=== PATIENT | female | born 1940 | race Caucasian/White ===

== ENCOUNTER 2016-09-30 14:34 | Observation (INO) | payer MEDICARE, OTHER ==
[2016-09-30] MEDS ORDERED: KETOROLAC TROMETHAMINE 60 MG/2 ML VIAL IM ONE (14:44)
[2016-09-30 15:11] LABS: APPEARANCE,URINE Clear (CLEAR); COLOR,URINE Yellow (YELLOW); OCCULT BLOOD,URINE Negative (NEGATIVE); PH URINE 5.5 (5.0 - 8.0); UROBILINOGEN URINE 0.2 Eu (0.2-1.0)
[2016-09-30] MEDS ORDERED: ONDANSETRON HCL/PF 4 MG/ 2ML VIAL IVP ONE (15:56)
[2016-09-30 16:04] LABS: BASOPHILS % 0.2 (0.0-1.5); EOSINOPHILS % 2.2 % (0.0-6.8); MEAN CORPUSCULAR HEMOGLOBIN 32.9 pg (28.0-34.0); MEAN CORPUSCULAR VOLUME 89.4 fl (80.0-100.0); MONOCYTES % 5.7 % (0.0-11.0); NEUTROPHILS # 6.8 # k/uL (1.4-7.7)
[2016-09-30 16:18] LABS: eGFR (African) > 60; eGFR (Non-African) > 60
[2016-09-30 18:43] VITALS: BMI 32.4
[2016-09-30] MEDS ORDERED: ENOXAPARIN SODIUM 30 MG/0.3 ML DISP.SYRIN SQ SCH (19:28)
[2016-09-30] MEDS ORDERED: KETOROLAC TROMETHAMINE 30 MG/1ML VIAL IVP SCH (19:28)
--- NOTE | 2016-09-30 19:28 | History and Physical Report ---
History of Present Illnes - History of Present Illness Reason for Visit: Weakness History of Present Illness: Patient tells me she presented to ER because today her R anterior thigh started hurting. Has a H/o B THR. The leg has felt very weak today and unable to bear weight. In the ER, CT of Lspine and pelvis were negative for fractures. Sodium and potassium found to be low. Patient had recently been started on HCTZ 25 mg daily for HTN. - Past Medical History Cardiac: HTN, Hyperlipidemia. denies: AFIB, CAD, CHF Gastrointestinal: GERD, Other (esophageal stricture) Heme/Onc: Other (Factor V Leiden deficency) Musculoskeletal: Other (hip pain chronic) - Past Surgical History Past Surgical History: Cataract Removal, Hysterectomy (total), Total Hip Replacement (bilateral), Other (esophageal dilitation) - Past Family History Father Family History: CAD, DM, (70s) Mother Family History: DM, (82yo) Sister 1 Family History: DM, Other (alzeheimers) - Past Social History Smoke: No Alcohol: None Drugs: None Lives: Alone Domestic Violence: Negative - Health Maintenance Health Maintenance: Influenza Vaccine, Pneumococcal Vaccine. denies: Tetanus, Mammogram, Colonoscopy, DEXA Pneumonia Vaccine: Yes Resuscitation Status: Resusciation Status Resuscitation Status Full Code Review of Systems - Review of Systems Constitutional: Weakness. negative: Fever Eyes: negative: pain ENT: negative: Ear Pain Respiratory: negative: Cough, Shortness of Breath Cardiovascular: negative: Chest Pain Gastrointestinal: negative: Nausea, Vomiting, Abdominal Pain, Diarrhea, Constipation Genitourinary: Frequency. negative: Dysuria Musculoskeletal: Leg Pain Skin: negative: Rash Neurological: Weakness - Medications/Allergies Allergies/Adverse Reactions: Allergies Allergy/AdvReac Type Severity Reaction Status Date / Time erythromycin base Allergy Unknown unknown Verified 09/30/16 14:49 [From E-Mycin] Penicillins Allergy Unknown unknown Verified 09/30/16 14:49 Sulfa (Sulfonamide Allergy Unknown unknown Verified 09/30/16 14:49 Antibiotics) Exam - Exam Vital Signs: Vital Signs (72 hours) 09/30/16 18:24 Temperature 97.8 F Pulse Rate [ 72 Pulse ox] Respiratory 20 Rate Blood Pressure 154/73 [Left Arm] O2 Sat by Pulse 96 Oximetry General: Alert, Oriented to Person, Oriented to Place, Oriented to Time, Cooperative, Obese HEENT: Atraumatic, PERRLA, EOMI, Nose Mucous membr. moist/M[place]o Neck: Normal Range of Motion Lungs: Clear to auscultation, Normal air movement, Speaks full Sentences Cardiovascular: Regular rate Abdomen: Normal bowel sounds, Soft, No tenderness Integumentary: Normal Extremities: No edema, Other (Tender R anterior thigh. NO posterior pain or swelling.) Neurological: Generalized Weakness Psych/Mental Status: Mental status NL, Mood NL, Appropriate Affect, Intact Judgment Assessment/Plan - Assessment/Plan (1) Hypokalemia Status: Acute Current Visit: Yes Plan: Will replace orally. Suspect due to HCTZ. Will stop. (2) Leg pain, anterior Status: Acute Current Visit: Yes Plan: Suspect OA. Treat with ibuprofen first then tramadol if no help. (3) Hypertension Status: Acute Current Visit: No Qualifiers: Hypertension type: unspecified secondary hypertension Qualified Code(s): I15.9 - Secondary hypertension, unspecified Plan: Stop HCTZ. Watch. (4) Weakness Status: Acute Current Visit: No (5) Hyponatremia Status: Acute Current Visit: Yes Plan: Suspect due to HCTZ. Will stop. Run IVF of NS. VTE Assessment - RISK FACTOR SCORE VTE RISK FACTOR SCORES: AGE OVER 60 YEARS, ANTICIPATED BED CONFINEMENT OR IMMOBILIZATION > 24 HOURS - RISK VTE MODERATE RISK: SCORE OF 2 (RISK PROXIMAL DVT 2-4%) PROPHYAXIS NEEDED
[2016-09-30] MEDS ORDERED: IBUPROFEN 400 MG TABLET PO PRN (19:43)
[2016-09-30] MEDS ORDERED: traMADol HCL 50 MG TABLET PO PRN (19:43)
[2016-09-30] MEDS ORDERED: 0.9 % SODIUM CHLORIDE 1,000 ML IV ONE (19:45)
[2016-09-30] MEDS ORDERED: LEVOFLOXACIN 500MG/D5W 100ML 100 ML IV ONE (19:45)
[2016-09-30] MEDS: LEVOFLOXACIN 500MG/D5W 100ML 500 MG in PREMIX BAG 1 BAG IV SCH (19:51)
[2016-09-30] MEDS: 0.9 % SODIUM CHLORIDE 1,000 ML IV SCH (19:51)
[2016-09-30] MEDS ORDERED: ENOXAPARIN SODIUM 30 MG/0.3 ML DISP.SYRIN SQ ONE (19:56)
--- NOTE | 2016-09-30 19:58 | ED Physician Documentation ---
Abdominal Pain - HISTORIAN Historian: patient - HPI Stated Complaint: back pain Chief Complaint: Abdominal Pain Additonal Information: inguinal and low back pain Onset: hours (5) Duration: constant Timing: still present Context: other (doing housework). denies: out of country travel, bad food, recent trauma Severity: moderate Quality: burning Front/Back of Body, Lg (Color): 1 - pain 2 - pain Associated Symptoms: other (ack pain) Exacerbated by: other (moving) Relieved by: nothing - ROS CONST: no problems GI/: none CVS/RESP: none EYES/ENT: none MS/SKIN/LYMPH: none NEURO/PSYCH: none - SOCIAL HX Smoking History: non-smoker Alcohol Use: none Drug Use: none - FAMILY HX Family History: no significant history - PAST HX Past History: none Ischemic Bowel Risk Factors: none Other History: none Surgeries/Procedures: none Immunizations: referred to PCP Home Medications: Ambulatory Orders Medication Instructions Recorded Aspirin [Thuy] 81 mg PO DAILY 10/13/15 Ibuprofen [Advil] 400 mg PO DIRECTED PRN 10/13/15 Allergies/Adverse Reactions: Allergies Allergy/AdvReac Type Severity Reaction Status Date / Time erythromycin base Allergy Unknown unknown Verified 09/30/16 14:49 [From E-Mycin] Penicillins Allergy Unknown unknown Verified 09/30/16 14:49 Sulfa (Sulfonamide Allergy Unknown unknown Verified 09/30/16 14:49 Antibiotics) - VITAL SIGNS Vital Signs: Vital Signs Temp Pulse Resp BP Pulse Ox 97.8 F 72 20 154/73 96 09/30/16 18:24 09/30/16 18:24 09/30/16 18:24 09/30/16 18:24 09/30/16 18:24 - REVIEWED ASSESSMENTS Nursing Assessment Reviewed: Yes Vitals Reviewed: Yes Progress - Results/Orders Results/Orders: cbc, cmp, ua, ct l-spine, hip/pelvis x-rays ordered - Progress Progress: pt. stable entire time in er, given 30 mg toradol iv with improvement Critical Care Note - Critical Care Note Total Time (mins): 0 ED Results Lab/Radiology - Lab Results Lab Results: Lab Results 09/30/16 09/30/16 09/30/16 15:55 15:55 15:55 WBC RBC Hgb Hct MCV MCH MCHC RDW Plt Count Neut % (Auto) Lymph % (Auto) [place] % (Auto) Eos % (Auto) Baso % (Auto) Neut # Lymph # [place] # Eos # Baso # Reactive Lymphs % Reactive Lymphs # PT 9.9 Seconds Seconds (9.7-11.5) INR 0.9 (0.9-1.1) APTT 24.8 Seconds Seconds (24.5-32.8) Sodium 128 mmol/L L mmol/L (136-145) Potassium 3.0 mmol/L L mmol/L (3.5-5.0) Chloride 80 mmol/L L mmol/L (98-110) Carbon Dioxide 34 mmol/L H mmol/L (20-32) BUN 15 mg/dL mg/dL (10-26) Creatinine 0.6 mg/dL mg/dL (0.4-1.5) Estimated Creat Clear 132 Est GFR ( Amer) > 60 (60 - ) Est GFR (Non-Af Amer) > 60 (60 - ) Glucose 157 mg/dL H mg/dL (70-99) Calcium 10.3 mg/dL mg/dL (8.5-10.5) Total Bilirubin 1.5 mg/dL H mg/dL (0.2-1.2) AST 30 U/L U/L (0-41) ALT 29 U/L U/L (0-45) Alkaline Phosphatase 61 U/L U/L (46-116) Troponin I < 0.03 ng/mL L ng/mL (0.03-0.06) Total Protein 7.1 g/dL g/dL (6.0-8.5) Albumin 4.6 g/dL g/dL (3.0-5.5) Urine Color Urine Appearance Urine pH Ur Specific [place] Urine Protein Urine Ketones Urine Occult Blood Urine Nitrite Urine Bilirubin Urine Urobilinogen Ur Leukocyte Esterase Urine RBC Urine WBC Urine WBC Clumps Ur Squamous Epith Cells Urine Bacteria Urine Glucose 09/30/16 09/30/16 15:55 15:05 WBC 9.60 K/ul K/ul (4.00-12.00) RBC 4.03 M/ul M/ul (3.90-5.20) Hgb 13.3 g/dL g/dL (12.0-16.0) Hct 36.0 % % (34.5-46.5) MCV 89.4 fl fl (80.0-100.0) MCH 32.9 pg pg (28.0-34.0) MCHC 36.8 g/dL H g/dL (30.0-36.0) RDW 12.8 % % (11.3-14.3) Plt Count 184 K/mm3 K/mm3 (130-400) Neut % (Auto) 71.4 % % (39.0-79.0) Lymph % (Auto) 19.3 % % (16.0-50.0) [place] % (Auto) 5.7 % % (0.0-11.0) Eos % (Auto) 2.2 % % (0.0-6.8) Baso % (Auto) 0.2 (0.0-1.5) Neut # 6.8 # k/uL # k/uL (1.4-7.7) Lymph # 1.8 # k/uL # k/uL (0.6-4.0) [place] # 0.6 # k/uL # k/uL (0.0-0.9) Eos # 0.2 # k/uL # k/uL (0.0-0.6) Baso # 0.0 # k/uL # k/uL (0.0-0.5) Reactive Lymphs % 1.2 % % (0.0-5.0) Reactive Lymphs # 0.1 # k/uL # k/uL (0.0-0.8) PT INR APTT Sodium Potassium Chloride Carbon Dioxide BUN Creatinine Estimated Creat Clear Est GFR ( Amer) Est GFR (Non-Af Amer) Glucose Calcium Total Bilirubin AST ALT Alkaline Phosphatase Troponin I Total Protein Albumin Urine Color Yellow (YELLOW) Urine Appearance Clear (CLEAR) Urine pH 5.5 (5.0 - 8.0) Ur Specific [place] 1.020 (1.010-1.030) Urine Protein Negative mg/dL mg/dL (NEGATIVE) Urine Ketones Negative mg/dL mg/dL (NEGATIVE) Urine Occult Blood Negative (NEGATIVE) Urine Nitrite Positive (NEGATIVE) Urine Bilirubin Negative (NEGATIVE) Urine Urobilinogen 0.2 Eu Eu (0.2-1.0) Ur Leukocyte Esterase Negative (NEGATIVE) Urine RBC 0-2 (0-2 HPF) Urine WBC 5-10 H (0-5 HPF) Urine WBC Clumps Present H (NEGATIVE) Ur Squamous Epith Cells Few (NEG-FEW) Urine Bacteria Moderate H (NEGATIVE) Urine Glucose Negative mg/dL mg/dL (NEGATIVE) - Radiology Radiology Impressions: ct l-spine shows ddd, pelvic x-ray neg for pubic ramus fracture - Orders Orders: ED Orders Category Date Time Status Activity as ordered D Care 09/30/16 19:28 Active Assess pulse oximetry Q4H Care 09/30/16 19:28 Active Continuous EKG monitoring Q1H Care 09/30/16 19:28 Active Document Bowel Movement Q8H Care 09/30/16 19:[address] Boyle NOW Care 09/30/16 19:28 Ordered Further Nursing Orders 912 Care 09/30/16 19:28 Active Observation-Telemetry NOW Care 09/30/16 19:[address] Saline Lock/IV Now Care 09/30/16 15:56 Completed Vital Signs Q4 Care 09/30/16 19:28 Active Regular Diet 09/30/16 Breakfast Ordered Regular Diet 09/30/16 Breakfast Ordered BILAT HIPS 2V (W/PEL IF DONE) [RAD] Routine Exams 09/30/[address] L-SPINE W/O CONTRAST Stat Exams 09/30/[address] PELVIS W/O CONTRAST Stat Exams 09/30/16 Taken BMP Routine Lab 10/01/16 06:00 Ordered CBC/PLATELET/DIFF Routine Lab 09/30/16 15:55 Completed CMP Routine Lab 09/30/16 15:55 Completed PT-INR Routine Lab 09/30/16 15:55 Completed PTT Routine Lab 09/30/16 15:55 Completed TROPONIN I (cTnI) Routine Lab 09/30/16 15:55 Completed URINALYSIS Routine Lab 09/30/16 15:05 Completed URINE CULTURE Routine Lab 09/30/16 15:05 Received 0.9 % Sodium Chloride [Normal Saline] 1,000 ml Med 09/30/16 19:28 Ordered IV Q10H Aspirin Med 10/01/16 09:00 Ordered 81 mg PO DAILY Atenolol [Tenormin] Med 10/01/16 09:00 Discontinued 50 mg PO DAILY Atorvastatin Calcium [Lipitor] Med 09/30/16 21:00 Discontinued 20 mg PO HS Enoxaparin Sodium [Lovenox] Med 09/30/16 19:28 Ordered 30 mg SQ QD Hydrochlorothiazide [Hydrodiuril] Med 10/01/16 09:00 Ordered 25 mg PO DAILY Ketorolac Tromethamine [Toradol] Med 09/30/16 19:28 Discontinued 30 mg IVP Q6 Ketorolac Tromethamine [Toradol] Med 09/30/16 14:44 Discontinued 60 mg IM NOW ONE Levofloxacin 500Mg/D5w 100Ml [Levaquin] 500 mg Med 09/30/16 19:28 Ordered Premix Bag [Premix Fluid] 1 bag IV DAILY Ondansetron HCl/Pf [Zofran 4 mg/2 ml] Med 09/30/16 15:56 Discontinued 8 mg IVP NOW ONE amLODIPine BESYLATE [Norvasc] Med 10/01/16 09:00 Ordered 5 mg PO DAILY Resuscitation Status Routine Oth 09/30/16 19:28 Ordered EKG WITH COMPARISON Routine Ther 09/30/16 Stop Req Transfer Routine Transfer 09/30/16 Completed Abdominal Pain Physical Exam - Physical Exam General Appearance: alert, moderate distress EENT: eye inspection normal, ENT inspection normal, pharynx normal, no signs of dehydration, WALDEMAR, no nystagmus, TM's nml NECK: normal inspection, thyroid normal, supple RESPIRATORY: no resp distress, chest non-tender, breath sounds normal CVS: reg rate & rhythm, heart sounds normal, equal pulses, no murmur, no gallop , PMI nml ABDOMEN: soft, no organomegaly, normal bowel sounds, no abdominal bruit, other ( tenderness suprapubic area) BACK: normal inspection, no CVA tenderness SKIN: warm/dry, normal color EXTREMITIES: non-tender, normal range of motion, no evidence of injury, no edema NEURO: oriented X3, CN's nml as tested, motor nml, sensation nml, mood/affect nml, cognition normal Vital Signs: Vital Signs Temp Pulse Resp BP Pulse Ox 97.8 F 72 20 154/73 96 09/30/16 18:24 09/30/16 18:24 09/30/16 18:24 09/30/16 18:24 09/30/16 18:24 Discharge Clincal Impression: Lumbar radiculopathy, Hyponatremia Home Medications: Ambulatory Orders Aspirin [Thuy] 81 mg PO DAILY 10/13/15 Ibuprofen [Advil] 400 mg PO DIRECTED PRN 10/13/15 Comments: Case discussed with Dr. Boyle. Admitted to observation status. Condition: Stable Disposition: ADMITTED INPATIENT Decision to Admit: [id number] Date of Decison to Admit: 09/30/16 Decision Time: 18:05
[2016-09-30] MEDS ORDERED: IBUPROFEN 400 MG TABLET PO ONE (20:04)
--- NOTE | 2016-09-30 20:16 | Diagnostic Imaging Report ---
SIMONE MAYES [facility] [address] [facility] 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 Heterotopic ossification is observed adjacent to the right greater trochanter. The osseous pelvis is intact and there is no evidence of fracture, dislocation, or component loosening. Osteopenia and mild lower lumbar spondylosis are noted. 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 Electronically signed on Sep 30, 2016 3:51:56 PM CDT by: Stiven SEVERINO
--- NOTE | 2016-09-30 20:19 | Diagnostic Imaging Report ---
SIMONE MAYES [facility] [address] [facility] [address] [place], [place]. [address] Report Submission Date: Sep 30, 2016 4:37:50 PM CDT Patient Study Name: ELLE MENESES Date: Sep 30, 2016 3:07:59 PM CDT Modality Type: CT\SR Gender: F Description: CT L-SPINE W/O CONTRAS : 36 Institution: [facility] Physician: SIMONE MAYES Computed tomography of the lumbar spine without contrast History: Right hip and pelvic pain Findings: Transverse lumbar spine sections are obtained without contrast from which multiplanar reformatted images are generated. Atherosclerosis and cholelithiasis are noted. There is no evidence of fracture. L1/L2: Unremarkable. L2/L3: Moderate disc space narrowing, degenerative retrolisthesis, minimal disc bulging, and spinal canal narrowing without stenosis. L3/4: Minimal disc space narrowing, mild degenerative retrolisthesis, moderate left facet arthropathy mild diffuse disc bulging and borderline central canal stenosis. L4/L5: Moderate disc space narrowing, moderate bilateral facet arthropathy, ligamentum flavum thickening, grade I spondylolisthesis, moderate diffuse disc bulging bilateral foraminal narrowing, and central canal stenosis. L5/S1: Advanced left and moderate right facet arthropathy. Intervertebral disc is normal. The spinal canal and neural foramina are patent. Impression: 1. No evidence of fracture. 2. Atherosclerosis and cholelithiasis. 3. L3/L4 spondylosis with borderline central canal stenosis. 4. L4/L5 spondylosis with central canal stenosis. Electronically signed on Sep 30, 2016 4:37:50 PM CDT by: Stiven SEVERINO
[2016-09-30] MEDS ORDERED: ATORVASTATIN CALCIUM 80 MG TABLET PO SCH (21:00)
[2016-10-01] MEDS ORDERED: HYDROCHLOROTHIAZIDE 25 MG TABLET PO ONE (00:03)
[2016-10-01] MEDS ORDERED: ATENOLOL 25 MG TABLET PO ONE (00:03)
[2016-10-01] MEDS ORDERED: ASPIRIN 81 MG CHEW TAB ONE (00:04)
[2016-10-01] MEDS ORDERED: amLODIPine BESYLATE 5 MG TABLET ONE (00:04)
[2016-10-01] MEDS: 0.9 % SODIUM CHLORIDE 1,000 ML IV SCH ×2 (06:34→08:45)
[2016-10-01 06:49] LABS: eGFR (African) > 60; eGFR (Non-African) > 60
[2016-10-01] MEDS ORDERED: POTASSIUM CHLORIDE 20 MEQ TABLET.ER PO ONE (07:54)
[2016-10-01] MEDS ORDERED: LEVOFLOXACIN 500MG/D5W 100ML 100 ML IV ONE (08:03)
[2016-10-01] MEDS ORDERED: POTASSIUM CHLORIDE 20 MEQ TABLET.ER ONE (08:03)
[2016-10-01] MEDS: LEVOFLOXACIN 500MG/D5W 100ML 500 MG in PREMIX BAG 1 BAG IV SCH (08:05)
[2016-10-01] MEDS ORDERED: 0.9 % SODIUM CHLORIDE 1,000 ML IV ONE (08:40)
[2016-10-01] MEDS ORDERED: amLODIPine BESYLATE 5 MG TABLET PO SCH (09:00)
[2016-10-01] MEDS ORDERED: ATENOLOL 25 MG TABLET PO SCH ×2 (09:00)
[2016-10-01] MEDS ORDERED: ASPIRIN 81 MG CHEW TAB PO SCH (09:00)
[2016-10-01] MEDS ORDERED: ATENOLOL 50 MG PO SCH (09:00)
[2016-10-01] MEDS ORDERED: HYDROCHLOROTHIAZIDE 25 MG TABLET PO SCH (09:00)
[2016-10-01] MEDS ORDERED: 0.9 % SODIUM CHLORIDE 1,000 ML IV SCH (09:54)
[2016-10-01 13:32] VITALS: BP 117/58
[2016-10-01 14:27] LABS: eGFR (African) > 60; eGFR (Non-African) > 60
--- NOTE | 2016-10-01 15:07 | Discharge Summary ---
Discharge Summary - Discharge Sumary History of Present Illness: Patient tells me she presented to ER because today her R anterior thigh started hurting. Has a H/o B THR. The leg has felt very weak today and unable to bear weight. In the ER, CT of Lspine and pelvis were negative for fractures. Sodium and potassium found to be low. Patient had recently been started on HCTZ 25 mg daily for HTN. Condition at Discharge: Stable Home Medications: Ambulatory Orders Medication Instructions Recorded RX: Aspirin [Thuy] 81 mg PO DAILY 10/13/15 RX: Ibuprofen [Advil] 400 mg PO DIRECTED PRN 10/13/15 Levofloxacin [Levaquin] 500 mg PO DAILY #5 tablet 10/01/16 Consultations this Visit: None Procedures this Visit: None Allergies/Adverse Reactions: Allergies Allergy/AdvReac Type Severity Reaction Status Date / Time erythromycin base Allergy Unknown unknown Verified 09/30/16 14:49 [From E-Mycin] Penicillins Allergy Unknown unknown Verified 09/30/16 14:49 Sulfa (Sulfonamide Allergy Unknown unknown Verified 09/30/16 14:49 Antibiotics) Discharge Summary: Patient was admitted with R leg pain that was much improved after toradol. Ambulated near baseline. IVF with NS given for hyponatremia. This stayed about the same. Will work up as outpatient if not corrected this week at follow up. Suspected HCTZ as cause. Also hypokalemia was replaced orally. HCTZ stopped. Patient to monitor BP and f/u with Dr. Brower 10-07. Discharged in good condition. Hospital Course: Discharge Dx: R leg pain - OA. hyponatremia. hypokalemia. HTN\. Disposition - home
== END 2016-10-01 15:48 | disposition home or self-care (01) ==
LOC: ED 14:34 → SOUTH 18:12
PROVIDERS: ADMIT Family Medicine; ATTEND Family Medicine
DX: M17.11 Unilateral primary osteoarthritis, right knee (principal); E87.1 Hypo-osmolality and hyponatremia; I10 Essential (primary) hypertension
CPT/HCPCS: 36415; 72131; 73521; 80048; 80053; 81002; 84484; 85025; 85610; 85730; 87086; 87186; 93005; A9270; G0378; J1650; J1885; J1956; J2405; J7030; 96361; 96365; 96367; 96375; 96376; 99283; 99284; S1016

== ENCOUNTER 2016-10-13 10:50 | Outpatient (CLI) | payer MEDICARE, OTHER | END 2016-10-13 10:52 | LOC: RAD 10:50 | PROVIDERS: ATTEND Family Medicine | DX: I10 Essential (primary) hypertension (principal); M15.9 Polyosteoarthritis, unspecified; M81.0 Age-related osteoporosis without current pathological fracture | CPT/HCPCS: 77080 ==

== ENCOUNTER 2017-05-08 13:19 | Outpatient (CLI) | payer MEDICARE, OTHER ==
[2017-05-08 14:19] LABS: eGFR (African) > 60; eGFR (Non-African) > 60
== END 2017-05-08 13:20 ==
LOC: LAB 13:19
PROVIDERS: ATTEND Family Medicine
DX: I10 Essential (primary) hypertension (principal); R73.9 Hyperglycemia, unspecified
CPT/HCPCS: 36415; 80053; 80061; 83036

== ENCOUNTER 2017-09-26 19:45 | Emergency (ER) | payer MEDICARE, OTHER ==
--- NOTE | 2017-09-26 19:56 | ED Physician Documentation ---
General Adult - HISTORIAN Historian: patient, other (family members) - HPI Stated Complaint: vag bleeding, post-menopausal Chief Complaint: General Adult Onset: hours Timing: still present Severity: moderate Further Comments: yes (Pt is a 76 yo female, with a hysterectomy at age 36, who has had significant vag bleeding since this am. Pt had some back pain earlier in the week. Pt is not feeling unwell. No urinary sx. No fever, n/v. Pt says she used several pads since this am. Pt has hx Factor XIII deficiency.) - ROS CONST: no problems EYES/ENT: none CVS/RESP: none GI/: other (vag bleeding) MS/SKIN/LYMPH: none - PAST HX Past History: hypertension, other (Factor XIII deficiency, HLD) Surgeries/Procedures: hysterectomy, other (ortho surgery) Allergies/Adverse Reactions: Allergies Allergy/AdvReac Type Severity Reaction Status Date / Time erythromycin base Allergy Unknown unknown Verified 09/26/17 19:55 [From E-Mycin] Penicillins Allergy Unknown unknown Verified 09/26/17 19:55 Sulfa (Sulfonamide Allergy Unknown unknown Verified 09/26/17 19:55 Antibiotics) Home Medications: Ambulatory Orders Medication Instructions Recorded Aspirin [Thuy] 81 mg PO DAILY 10/13/15 Ibuprofen [Advil] 400 mg PO DIRECTED PRN 10/13/15 - SOCIAL HX Smoking History: non-smoker - FAMILY HX Family History: No - VITAL SIGNS Vital Signs: Vital Signs Temp Pulse Resp BP Pulse Ox 117/58 10/01/16 15:06 - REVIEWED ASSESSMENTS Nursing Assessment Reviewed: Yes Vitals Reviewed: Yes Progress - Progress Progress: U/a - neg [facility] [place] [facility] will call you tomorrow to set up an appointment. Their office number is . (Dr. Lakeshia Jones) General Adult Physical Exam - PHYSICAL EXAM GENERAL APPEARANCE: no distress EENT: pharynx normal NECK: normal inspection, supple RESPIRATORY: no resp distress, chest non-tender, breath sounds normal CVS: reg rate & rhythm, heart sounds normal ABDOMEN: soft, no organomegaly, normal bowel sounds, other (evidence of vag bleeding on clothing, no active vag bleeding at time of exam) BACK: normal inspection, no CVA tenderness SKIN: warm/dry, normal color EXTREMITIES: non-tender, normal range of motion NEURO: oriented X3, motor nml, sensation nml Discharge Clincal Impression: Post-menopausal bleeding Referrals: Jeannette Boyle MD [STAFF PHYSICIAN] - Condition: Stable Disposition: 01 HOME, SELF-CARE Decision to Admit: NO Decision Time: 21:40
[2017-09-26 20:35] LABS: BASOPHILS % 0.5 (0.0-1.5); EOSINOPHILS % 3.3 % (0.0-6.8); MEAN CORPUSCULAR HEMOGLOBIN 32.8 pg (28.0-34.0); MEAN CORPUSCULAR VOLUME 95.9 fl (80.0-100.0); MONOCYTES % 5.7 % (0.0-11.0); NEUTROPHILS # 4.1 # k/uL (1.4-7.7)
[2017-09-26 20:44] LABS: eGFR (Non-African) > 60
[2017-09-26 22:02] VITALS: BP 166/80
[2017-09-27 06:51] LABS: APPEARANCE,URINE CLEAR (CLEAR); COLOR,URINE YELLOW (YELLOW); OCCULT BLOOD,URINE NEGATIVE (NEGATIVE); PH URINE 5.5 (5.0 - 8.0); UROBILINOGEN URINE 0.2 Eu (0.2-1.0)
== END 2017-09-26 21:50 | disposition home or self-care (01) ==
LOC: ED 19:45
DX: N95.0 Postmenopausal bleeding (principal); Z98.890 Other specified postprocedural states
CPT/HCPCS: 51701; 80053; 81002; 85025; 85610; 85730; 99282; 99283; S1016

== ENCOUNTER 2019-01-15 15:56 | Emergency (ER) | payer MEDICARE, OTHER ==
[2019-01-15] MEDS ORDERED: ASPIRIN 81 MG CHEW TAB ONE (16:14)
[2019-01-15] MEDS ORDERED: ASPIRIN 81 MG CHEW TAB PO ONE (16:19)
[2019-01-15 16:20] LABS: BASOPHILS % 0.6 % (0.0-1.5); NEUTROPHILS # 4.4 # k/uL (1.4-7.7)
--- NOTE | 2019-01-15 16:41 | ED Physician Documentation ---
Chest Pain - HISTORIAN Historian: patient - HPI Chief Complaint: Chest Pain Onset: hours (1300) Timing: sudden onset Last known Well Date: 01/15/19 Last Known Well Time: 13:00 Last known Well Code/Unknown Code: Known Context: rest (sitting in chair) Severity: moderate (5/10) Quality: pressure Chest Pain Radiation: no radiation Chest Pain Signs/Symptoms: nausea, diaphoresis, dizziness. denies: vomiting, cool extremities, tachypnea, tachycardia, hypotension, palpitations Worsened By: nothing Relieved By: nothing Further Comments: yes (78 year old female patient brought in by her daughter for evaluation of chest pain. Patient reports pain started around 1300 while she was sitting in the chair. Patient reports nausea and diaphoresis with the pain. She took ibuprofen at 1400 for her headache. No previous cardiac history. Patient reports increased edema in ankles, denies dyspnea with exerction.) - ROS CONST: none MS/LYMPH: ankle swelling GI/: nausea. denies: abdominal pain, problems urinating, vomiting, diarrhea, black stools EYES/ENT: none SKIN/ENDO: none NEURO/PSYCH: headache. denies: fainting, anxiety, depression - PAST HX [place] risk factors: hypertension, hyperlipidemia, other (Factor V Leiden Def.) GI disease: GERD, other (esophageal strictures) Surgeries/Procedures: cholecysectomy, appendectomy, hysterectomy, other (c- section; bilateral hip replacements. ). denies: cardiac bypass, cardiac cath Allergies/Adverse Reactions: Allergies Allergy/AdvReac Type Severity Reaction Status Date / Time erythromycin base Allergy Unknown unknown Verified 01/15/19 16:45 [From E-Mycin] Penicillins Allergy Unknown unknown Verified 01/15/19 16:45 Sulfa (Sulfonamide Allergy Unknown unknown Verified 01/15/19 16:45 Antibiotics) Home Medications: Ambulatory Orders Medication Instructions Recorded Aspirin [Thuy] 81 mg PO DAILY 10/13/15 - SOCIAL HX Smoking History: denies: non-smoker - FAMILY HX Family HX: denies: none - VITAL SIGNS Vital Signs: Vital Signs Temp Pulse Resp BP Pulse Ox 163/58 05/10/18 17:13 - REVIEWED ASSESSMENTS Nursing Assessment Reviewed: Yes Vitals Reviewed: Yes Progress - EKG/XRAY/CT EKG: rhythm (SR with Left BBB, rate 96) ED Results Lab/Radiology - Lab Results Lab Results: Lab Results 01/15/19 16:16 WBC 7.40 K/ul K/ul (4.00-12.00) RBC 4.52 M/ul M/ul (3.90-5.20) Hgb 14.9 g/dL g/dL (11.5-16.0) Hct 43.7 % % (34.5-46.5) MCV 97.0 fl fl (80.0-100.0) MCH 32.9 pg pg (28.0-34.0) MCHC 34.0 g/dL g/dL (30.0-36.0) RDW 12.7 % % (11.3-14.3) Plt Count 191 K/mm3 K/mm3 (130-400) Neut % (Auto) 58.8 % % (39.0-79.0) Lymph % (Auto) 32.5 % % (16.0-50.0) [place] % (Auto) 5.8 % % (0.0-11.0) Eos % (Auto) 2.3 % % (0.0-6.8) Baso % (Auto) 0.6 % % (0.0-1.5) Neut # (Auto) 4.4 # k/uL # k/uL (1.4-7.7) Lymph # (Auto) 2.4 # k/uL # k/uL (0.6-4.0) [place] # (Auto) 0.4 # k/uL # k/uL (0.0-0.9) Eos # (Auto) 0.2 # k/uL # k/uL (0.0-0.6) Baso # (Auto) 0.0 # k/uL # k/uL (0.0-0.5) - Radiology Radiology Impressions: Examination: PA and lateral chest. History: Evaluate lung [place]. Comparison exam: 10 May 2018 Findings: PA and lateral views of the chest demonstrates a normal cardiac and mediastinal silhouette. Tortuous aorta. Chronic interstitial changes. No focal infiltrate. No blunting of the costophrenic margins. Osseous structures are appropriate for age. Impression: Chronic interstitial changes. No acute pulmonary process. Electronically signed on Jan 15, 2019 4:36:44 PM CDT by: Ziyad Celis - Orders Orders: ED Orders Category Date Time Status Continuous EKG monitoring Q30M Care 01/15/19 16:16 Active Continuous Pulse Oximetry Q30M Care 01/15/19 16:[address] IV Lock 1T Care 01/15/19 16:16 Active CHEST 2VIEW [RAD] Stat Exams 01/15/19 16:16 Ordered BNP [NTBNP] Stat Lab 01/15/19 Ordered CBC/PLATELET/DIFF Stat Lab 01/15/19 16:16 Ordered CMP Stat Lab 01/15/19 16:16 Ordered TROPONIN I Stat Lab 01/15/19 16:16 Ordered Aspirin [Thuy] Med 01/15/19 16:14 Discontinued 243 mg .ROUTE .STK-MED ONE Aspirin [Thuy] Med 01/15/19 16:19 Once 324 mg PO NOW ONE Oxygen Daily Oxygen 01/15/19 16:30 Ordered EKG WITH COMPARISON Stat Ther 01/15/19 16:16 Ordered Chest Pain Physical Exam - EXAM General Appearance: mild distress EENT: eye inspection normal, pharynx normal, no signs of dehydration, WALDEMAR, TM's nml Respiratory: no resp. distress, nml breath sounds, other (chest wall tenderness to palpation) CVS: reg. rate & rhythm, no murmur, no gallop, no friction rub, pulses full, pulses equal Abdomen: soft, no organomegaly, normal bowel sounds, no abdominal bruit, no distension Skin: normal color, warm/dry, NR, INT, DR Extremities: non-tender, normal range of motion, no evidence of injury, edema (1-2+ edema) Neuro: oriented X3, CN's nml as tested, motor nml, sensation nml, mood/affect nml Discharge Clincal Impression: Non-cardiac chest pain Referrals: Samson Brower MD [Primary Care Provider] - 2 Days Additional Instructions: Non cardiac chest pain Rest Tylenol or ibuprofen as needed for discomfort Make an follow Er appointment with your primary care doctor in the next 3-5 days. Return to the ER if you have Chest pain with shortness of breath, nausea and sweating all over. Or pain radiating to jaws or shoulders. Condition: Stable Disposition: 01 HOME, SELF-CARE Decision to Admit: NO Decision Time: 17:35
[2019-01-15 16:49] LABS: eGFR (Non-African) > 60
[2019-01-15] MEDS ORDERED: KETOROLAC TROMETHAMINE 30 MG/1ML VIAL IVP ONE (17:15)
[2019-01-15 18:14] VITALS: BP 159/76
--- NOTE | 2019-01-15 18:45 | Diagnostic Imaging Report ---
YUMIKO JUAN (COLLEGE SPORTS ASSISTANT) - ER [facility] [address] [address] Report Submission Date: Jan 15, 2019 4:36:44 PM CDT Patient Study Name: ELLE MENESES Date: Jan 15, 2019 4:14:38 PM CDT Modality Type: DX Gender: F Description: CHEST 2VIEW : 36 Institution: [facility] Physician: YUMIKO JUAN (COLLEGE SPORTS ASSISTANT) - ER Examination: PA and lateral chest. History: Evaluate lung [place]. Comparison exam: 10 May 2018 Findings: PA and lateral views of the chest demonstrates a normal cardiac and mediastinal silhouette. Tortuous aorta. Chronic interstitial changes. No focal infiltrate. No blunting of the costophrenic margins. Osseous structures are appropriate for age. Impression: Chronic interstitial changes. No acute pulmonary process. Electronically signed on Jan 15, 2019 4:36:44 PM CDT by: Ziyad SEVERINO
[2019-01-16 06:47] LABS: APPEARANCE,URINE CLEAR (CLEAR); COLOR,URINE YELLOW (YELLOW); OCCULT BLOOD,URINE NEGATIVE (NEGATIVE); UROBILINOGEN URINE 0.2 Eu (0.2-1.0)
== END 2019-01-15 18:02 | disposition home or self-care (01) ==
LOC: ED 15:56
DX: R07.89 Other chest pain (principal); R11.0 Nausea; R61 Generalized hyperhidrosis; I10 Essential (primary) hypertension; E78.5 Hyperlipidemia, unspecified
CPT/HCPCS: 71046; 80053; 81002; 83880; 84484; 85025; 93005; 96374; 99285; J1885; S1016

== ENCOUNTER 2019-03-19 12:20 | Emergency (ER) | payer MEDICARE, OTHER ==
[2019-03-19 12:47] LABS: BASOPHILS % 0.5 % (0.0-1.5); NEUTROPHILS # 5.5 # k/uL (1.4-7.7)
--- NOTE | 2019-03-19 13:03 | ED Physician Documentation ---
Dizziness - HISTORIAN Historian: patient, child (Daughter) - HPI Stated Complaint: dizzy n/d Chief Complaint: Dizziness Additional Information: Patient is an 78 year old female who presented to the ER ambulatory with c/o dizziness. Patient has a chronic history of dizziness. She denies any recent illnesses, no n/v, no shortness of breath or chest pain. She states that he son took her to a specialist in last week and they did a lot of testing including a head CT but could not find anything wrong. (Daughter feels that patient is doing this for attention). Timing: gradual onset Duration: none Severity: mild Associated Symptoms: none Decreased Ability to Stand/ Walk: falling (fell 1 week ago; no injuries). denies: weak, off balance, cane, walker Usually: walks w/o assistance Worsened By: changing position (orthostatics negative) - ROS CONST: none EYES/ENT: none GI/: none MS/SKIN/LYMPH: none NEURO/PSYCH: none CVS/RESP: none - PAST HX Past History: diabetes Type 2, hyperlipidemia, hypertension, other (factor V Leiden def., GERD, esophageal stricture) Cardiac Disease: other (LBBB) Surgeries/Procedures: cholecystectomy, appendectomy, hysterectomy, , other (bilateral hips) Immunizations: UTD Allergies/Adverse Reactions: Allergies Allergy/AdvReac Type Severity Reaction Status Date / Time erythromycin base Allergy Unknown unknown Verified 03/19/19 13:03 [From E-Mycin] Penicillins Allergy Unknown unknown Verified 03/19/19 13:03 Sulfa (Sulfonamide Allergy Unknown unknown Verified 03/19/19 13:03 Antibiotics) Home Medications: Ambulatory Orders Medication Instructions Recorded Meclizine HCl [Wal-Dram 2] 25 mg PO Q6H PRN #20 tablet 03/19/19 Metformin HCl [Metformin ER 500 mg PO DAILY 03/19/19 Osmotic] - SOCIAL HX Smoking History: non-smoker Alcohol Use: none Drug Use: none - FAMILY HX Family History: none - VITAL SIGNS Vital Signs: Vital Signs Temp Pulse Resp BP Pulse Ox 98.3 F 80 18 177/81 97 03/19/19 12:21 03/19/19 12:50 03/19/19 12:21 03/19/19 12:50 03/19/19 12:21 - REVIEWED ASSESSMENTS Nursing Assessment Reviewed: Yes Vitals Reviewed: Yes Progress - Progress Progress: 14:00 daughter feels that patient is trying to get attention from family; stated that she picked up mom from home because she was c/o dizziness but once she got there patient was acting and speaking normally. Siblings are going to get together and discuss assisted living. Patient has life alert but wont wear it. She wants the family to entertain her all the time and they are not able to do that. - EKG/XRAY/CT EKG: LBBB (rate 90s) ED Results Lab/Radiology - Lab Results Lab Results: Lab Results 03/19/19 12:45 WBC 9.20 K/ul K/ul (4.00-12.00) RBC 4.29 M/ul M/ul (3.90-5.20) Hgb 14.0 g/dL g/dL (11.5-16.0) Hct 40.8 % % (34.5-46.5) MCV 95.0 fl fl (80.0-100.0) MCH 32.6 pg pg (28.0-34.0) MCHC 34.3 g/dL g/dL (30.0-36.0) RDW 12.6 % % (11.3-14.3) Plt Count 240 K/mm3 K/mm3 (130-400) Neut % (Auto) 60.4 % % (39.0-79.0) Lymph % (Auto) 30.6 % % (16.0-50.0) [place] % (Auto) 6.4 % % (0.0-11.0) Eos % (Auto) 2.1 % % (0.0-6.8) Baso % (Auto) 0.5 % % (0.0-1.5) Neut # (Auto) 5.5 # k/uL # k/uL (1.4-7.7) Lymph # (Auto) 2.8 # k/uL # k/uL (0.6-4.0) [place] # (Auto) 0.6 # k/uL # k/uL (0.0-0.9) Eos # (Auto) 0.2 # k/uL # k/uL (0.0-0.6) Baso # (Auto) 0.1 # k/uL # k/uL (0.0-0.5) - Radiology Radiology Impressions: Exam: Chest two views. History: Shortness of breath. The examination is compared to study dated January 15, 2019. Lung [place] are very well aerated without prasanna consolidation or effusion. Heart size and mediastinal contour stable with atherosclerotic plaques seen in the aorta. Impression: No prasanna consolidation or effusion. Electronically signed on Mar 19, 2019 2:10:58 PM CDT by: Juan A Calvert - Orders Orders: ED Orders Category Date Time Status Continuous EKG monitoring Q30M Care 03/19/19 12:38 Active Continuous Pulse Oximetry Q30M Care 03/19/19 12:38 Active Orthostatics 1T Care 03/19/19 12:[address] IV Lock 1T Care 03/19/19 12:38 Active CHEST 2VIEW [RAD] Stat Exams 03/19/19 Ordered CBC/PLATELET/DIFF Stat Lab 03/19/19 12:45 Completed CKMB Stat Lab 03/19/19 12:45 Received CMP Stat Lab 03/19/19 12:45 Received CREATINE KINASE Stat Lab 03/19/19 12:45 Received TROPONIN I Stat Lab 03/19/19 12:45 Received Meclizine HCl [Antivert] Med 03/19/19 12:50 Discontinued 25 mg PO NOW ONE EKG WITH COMPARISON Stat Ther 03/19/19 12:38 Ordered Dizziness Physical Exam - Physical Exam General Appearance: no distress EENT: eye inspection normal, ENT inspection normal, pharynx normal, [place] Neck: normal inspection, supple. No: carotid bruit Respiratory: breath sounds nml, chest non-tender CVS: heart sounds normal, equal pulses, other (LBBB rate of 96 on EKG) Abdomen: soft, normal bowel sounds Skin: warm/dry, normal color Neuro: nml orientation, nml speech, nml cognition, mood/affect nml Extremities: non-tender, normal range of motion, edema (generalized) Cranial: nml as tested, no evidence of acute CVA Cerebellar: nml gait (walked in with hands on assist) Sensorimotor: motor nml, sensation nml Discharge Clincal Impression: Episode of dizziness Prescriptions: Meclizine HCl [Wal-Dram 2] 25 mg PO Q6H PRN #20 tablet PRN Reason: Dizziness Referrals: Samson Brower MD [Primary Care Provider] - 2 Days Additional Instructions: Take Meclizine 25mg by mouth every 6 hours as needed for dizziness Change position slowly Follow up with PCP in one week to have Potassium rechecked Condition: Good Disposition: 01 HOME, SELF-CARE Decision to Admit: NO Decision Time: 15:38
[2019-03-19 13:12] LABS: eGFR (Non-African) > 60
[2019-03-19] MEDS: MECLIZINE HCL 25 MG TABLET PO ONE (13:20)
[2019-03-19] MEDS: POTASSIUM CHLORIDE 20 MEQ TABLET.ER PO ONE (13:28)
[2019-03-19 15:06] VITALS: BP 167/72
--- NOTE | 2019-03-19 15:43 | Diagnostic Imaging Report ---
[facility] ED [facility] [id number] Counts Include [address]eds At [facility] [address] [place], [place]. [address] Report Submission Date: Mar 19, 2019 2:10:58 PM CDT Patient Study Name: ELLE MENESES Date: Mar 19, 2019 1:39:30 PM CDT Modality Type: DX Gender: F Description: CHEST 2VIEW : 36 Institution: [facility] Physician: RUDDY FLORES ED Exam: Chest two views. History: Shortness of breath. The examination is compared to study dated January 15, 2019. Lung [place] are very well aerated without prasanna consolidation or effusion. Heart size and mediastinal contour stable with atherosclerotic plaques seen in the aorta. Impression: No prasanna consolidation or effusion. Electronically signed on Mar 19, 2019 2:10:58 PM CDT by: Juan A SEVERINO
[2019-03-19 15:56] LABS: APPEARANCE,URINE CLOUDY (CLEAR); COLOR,URINE YELLOW (YELLOW)
[2019-03-19 15:57] LABS: OCCULT BLOOD,URINE NEGATIVE (NEGATIVE); PH URINE 6.5 (5.0 - 8.0); UROBILINOGEN URINE 0.2 Eu (0.2-1.0)
== END 2019-03-19 14:43 | disposition home or self-care (01) ==
LOC: ED 12:20
DX: R42 Dizziness and giddiness (principal)
CPT/HCPCS: 71046; 80053; 81002; 82550; 82553; 84484; 85025; 93005; 99282; 99283; A9270; S1016

== ENCOUNTER 2019-04-01 15:16 | Outpatient (CLI) | payer MEDICARE, OTHER ==
[2019-04-11 08:36] LABS: eGFR (Non-African) > 60
== END 2019-04-01 15:30 ==
LOC: LAB 15:16
PROVIDERS: ATTEND Family Medicine
DX: I10 Essential (primary) hypertension (principal); E11.9 Type 2 diabetes mellitus without complications
CPT/HCPCS: 36415; 80053; 83036

== ENCOUNTER 2019-05-20 11:26 | Observation (INO) | payer MEDICARE, OTHER ==
[2019-05-20] MEDS ORDERED: ASPIRIN 81 MG CHEW TAB PO ONE (11:27)
--- NOTE | 2019-05-20 11:30 | ED Physician Documentation ---
General Adult - HISTORIAN Historian: patient - HPI Stated Complaint: chest pain Chief Complaint: General Adult Onset: hours Timing: still present Severity: moderate Further Comments: yes (Pt is an 78 yo female with c/o chest pain that began this am. Pt has had sob, nausea, and dizziness. Pt rates pain as 7/10 severity. Pt had just gotten up and was walking to kitchen when pain came on.) - ROS CONST: weakness EYES/ENT: none CVS/RESP: chest pain, shortness of breath GI/: nausea MS/SKIN/LYMPH: none NEURO/PSYCH: dizziness - PAST HX Past History: other (HTN, HLD, esophageal stricture.) Surgeries/Procedures: hysterectomy Allergies/Adverse Reactions: Allergies Allergy/AdvReac Type Severity Reaction Status Date / Time erythromycin base Allergy Unknown unknown Verified 05/20/19 11:40 [From E-Mycin] Penicillins Allergy Unknown unknown Verified 05/20/19 11:40 Sulfa (Sulfonamide Allergy Unknown unknown Verified 05/20/19 11:40 Antibiotics) Home Medications: Ambulatory Orders Medication Instructions Recorded Meclizine HCl [Wal-Dram 2] 25 mg PO Q6H PRN #20 tablet 03/19/19 Metformin HCl [Metformin ER 500 mg PO DAILY 03/19/19 Osmotic] Atenolol 05/20/19 - SOCIAL HX Smoking History: non-smoker - FAMILY HX Family History: No - VITAL SIGNS Vital Signs: Vital Signs Temp Pulse Resp BP Pulse Ox 167/72 03/19/19 14:58 - REVIEWED ASSESSMENTS Nursing Assessment Reviewed: Yes Vitals Reviewed: Yes Progress - Progress Progress: CXR: Lung [place] are well aerated without prasanna consolidation or effusion. Heart size is normal with atherosclerotic plaques seen in the aorta. No other bony abnormalities are identified. Impression: No prasanna consolidation or effusion. ASA 324 mg po Pain resolved without tx Admit to Dr. Brower for r/o WA. - EKG/XRAY/CT EKG: NSR (HR=94, supraventricular premature beats, LBBB.) ED Results Lab/Radiology - Orders Orders: ED Orders Category Date Time Status Continuous EKG monitoring Q30M Care 05/20/19 11:28 Ordered Continuous Pulse Oximetry Q30M Care 05/20/19 11:[address] IV Lock 1T Care 05/20/19 11:28 Ordered CHEST 1VIEW [RAD] Stat Exams 05/20/19 Ordered CBC/PLATELET/DIFF Stat Lab 05/20/19 11:28 Ordered CKMB Stat Lab 05/20/19 11:28 Ordered CMP Stat Lab 05/20/19 11:28 Ordered CREATINE KINASE Stat Lab 05/20/19 11:28 Ordered NT BNP Stat Lab 05/20/19 Ordered TROPONIN I Stat Lab 05/20/19 11:28 Ordered Aspirin [Thuy] Med 05/20/19 11:27 Once 324 mg PO NOW ONE Oxygen Daily Oxygen 05/20/19 11:30 Ordered EKG WITH COMPARISON Stat Ther 05/20/19 11:28 Ordered General Adult Physical Exam - PHYSICAL EXAM GENERAL APPEARANCE: moderate distress EENT: pharynx normal NECK: normal inspection, supple RESPIRATORY: no resp distress, chest non-tender, breath sounds normal CVS: tachycardia, occasional extrasystoles ABDOMEN: soft, no organomegaly, normal bowel sounds BACK: normal inspection, no CVA tenderness SKIN: warm/dry, normal color EXTREMITIES: non-tender, normal range of motion, no evidence of injury, edema (trace) NEURO: oriented X3, motor nml, sensation nml Discharge Clincal Impression: Chest pain Referrals: Samson Brower MD [Primary Care Provider] - Condition: Stable Disposition: ADMITTED INPATIENT Decision to Admit: [id number] Decision Time: 13:31
[2019-05-20 11:36] LABS: BASOPHILS % 0.5 % (0.0-1.5); NEUTROPHILS # 5.6 # k/uL (1.4-7.7)
[2019-05-20] MEDS ORDERED: 0.9 % SODIUM CHLORIDE 500 ML IV ONE (11:38)
[2019-05-20 11:47] LABS: eGFR (Non-African) > 60
--- NOTE | 2019-05-20 12:48 | Diagnostic Imaging Report ---
PATIENT MR#: [id number] PATIENT PATIENT NAME: ELLE MENESES DATE OF : 1940 REFERRING PHYSICIAN: Rajan Lopez EXAM DATE: 05/20/2019 ACCESSION NUMBER: [id number] EXAM DESCRIPTION: CHEST 2VIEW Exam: Chest two views. History: Chest pain. AP view of the chest in lordotic positioning and lateral projection are submitted. Lung [place] are well aerated without prasanna consolidation or effusion. Heart size is normal with athe rosclerotic plaques seen in the aorta. No other bony abnormalities are identified. Impression: No prasanna consolidation or effusion. Read by: Dr. Juan A Benson Transcribed by: Transcribed Date: Electronically signed by: Dr. Juan A Benson Date signed: 05/20/2019 12:47:25 PM
[2019-05-20 14:33] VITALS: BMI 27.6
[2019-05-20] MEDS: ATENOLOL 25 MG TABLET PO SCH (17:04)
--- NOTE | 2019-05-20 17:51 | History and Physical Report ---
History of Present Illnes - History of Present Illness Reason for Visit: chest pain History of Present Illness: 78yo white female who awoke this AM complaining of chest pain. patient denies that she had any chest pain prior to this time. Patient describes the chest pain is been substernal in the lower sternal area. There is no radiation. Patient stated the pain with better with deep breathing patient patient did not notice any modifying factor that made the pain worse. patient denies any diaphoresis her shortness of breath associated with the pain. Pain did last for several hours before dissipating.Patient does have a history of hyperlipidemia hypertension. Patient subsequently came to the emergency room for evaluation. Shortly after admission patient stated the pain did resolved spontaneously. Patient had taken several aspens prior to admission to the ED. Patient was subsequently admitted to the hospital for further evaluation and treatment and relapse possible myocardial infarction. - Past Medical History Cardiac: HTN, Hyperlipidemia. denies: AFIB, CAD, CHF Gastrointestinal: GERD, Other (esophageal stricture) Heme/Onc: Other (Factor V Leiden deficency) Musculoskeletal: Other (hip pain chronic) ENT: Allergic rhinitis - Past Surgical History Past Surgical History: Cataract Removal, Hysterectomy (total), Total Hip Replacement (bilateral), Other (esophageal dilitation) - Past Family History Mother Family History: DM, (82yo) Father Family History: CAD, DM, (70s) Brother 1 Family History: CAD Sister 1 Family History: CAD, DM, Other (alzeheimers) Sister 2 Family History: Cancer - Past Social History Smoke: No Alcohol: None Drugs: None Lives: Alone Domestic Violence: Negative - Health Maintenance Health Maintenance: Influenza Vaccine, Pneumococcal Vaccine. denies: Tetanus, Mammogram, Colonoscopy, DEXA Influenza Vaccine: Current for this Influenza Season Pneumonia Vaccine: Yes Resuscitation Status: Resusciation Status Resuscitation Status Full Code - Unable to Obtain History Unable to Obtain: No Review of Systems - Review of Systems Constitutional: Weakness. negative: Fever, Chills, Sweats Eyes: negative: pain, vision change, redness ENT: negative: Ear Pain, Ear Discharge, Nose Pain, Nose Discharge, Nose [place] on, Mouth Swelling, Throat Pain, Throat Swelling Respiratory: Cough, Dry, Shortness of Breath. negative: Hemoptysis, SOB with Excertion, Wheezing Cardiovascular: Chest Pain. negative: Palpitations, Orthopnea, Paroxysmal Noc. Dyspnea, Edema, Light Headedness Gastrointestinal: negative: Nausea, Vomiting, Abdominal Pain, Diarrhea, Constipation, Melena, Hematochezia Genitourinary: Incontinence (occasional). negative: Dysuria, Frequency, Hematuria Musculoskeletal: Back Pain. negative: Neck Pain Skin: negative: Rash, Lesions, Jaundice Neurological: Weakness. negative: Numbness, Incoordination, Change in Speech, Confusion, Seizures - Medications/Allergies Allergies/Adverse Reactions: Allergies Allergy/AdvReac Type Severity Reaction Status Date / Time erythromycin base Allergy Unknown unknown Verified 05/20/19 11:40 [From E-Mycin] Penicillins Allergy Unknown unknown Verified 05/20/19 11:40 Sulfa (Sulfonamide Allergy Unknown unknown Verified 05/20/19 11:40 Antibiotics) Home Medications: Home Medications Atenolol 05/20/19 Current Inpatient Medications: Current Inpatient Medications Amlodipine Besylate (Norvasc) 10 mg PO NOW ONE Stop: 05/21/19 09:23 Atenolol (Tenormin) 50 mg PO DAILY [facility] Stop: 06/19/19 16:59 Last Admin: 05/20/19 17:04 Dose: 50 mg Atorvastatin Calcium (Lipitor) 20 mg PO DAILY [facility] Stop: 06/20/19 08:59 Enoxaparin Sodium (Lovenox) 30 mg SQ DAILY [facility] Stop: 06/04/19 08:59 Metformin HCl (Glucophage) 500 mg PO 0730 [facility] Stop: 06/20/19 07:29 Miscellaneous (Chem Sticks) 1 each CHEMQID [facility] Stop: 06/19/19 16:59 Last Admin: 05/20/19 17:01 Dose: Not Given Exam - Exam Vital Signs: Vital Signs (72 hours) 05/20/19 05/20/19 05/20/19 11:26 11:28 11:58 Temperature 97.6 F Pulse Rate 100 H 76 Pulse Rate [ Left] Pulse Rate [ 103 H Pulse ox] Respiratory 20 Rate Blood Pressure 169/110 [Left Arm] O2 Sat by Pulse 98 98 97 Oximetry 05/20/19 05/20/19 05/20/19 12:28 12:58 13:28 Temperature Pulse Rate 92 H 78 79 Pulse Rate [ Left] Pulse Rate [ Pulse ox] Respiratory Rate Blood Pressure [Left Arm] O2 Sat by Pulse 98 100 99 Oximetry 05/20/19 05/20/19 05/20/19 13:55 13:58 14:00 Temperature 97.7 F Pulse Rate 71 70 71 Pulse Rate [ 97 H Left] Pulse Rate [ 97 H 64 Pulse ox] Respiratory 20 16 Rate Blood Pressure 161/76 147/74 [Left Arm] O2 Sat by Pulse 97 100 97 Oximetry 05/20/19 05/20/19 05/20/19 14:28 14:30 15:00 Temperature 97.7 F Pulse Rate 76 70 Pulse Rate [ 97 H Left] Pulse Rate [ Pulse ox] Respiratory 20 Rate Blood Pressure 161/76 [Left Arm] O2 Sat by Pulse 97 95 93 Oximetry 05/20/19 05/20/19 05/20/19 15:21 15:22 16:56 Temperature Pulse Rate 80 83 Pulse Rate [ Left] Pulse Rate [ Pulse ox] Respiratory Rate Blood Pressure [Left Arm] O2 Sat by Pulse 93 Oximetry 05/20/19 05/20/19 16:57 17:06 Temperature 98.1 F Pulse Rate Pulse Rate [ 84 Left] Pulse Rate [ Pulse ox] Respiratory 18 Rate Blood Pressure 140/78 [Left Arm] O2 Sat by Pulse 94 95 Oximetry General: Alert, Oriented to Person, Oriented to Place, Oriented to Time, Cooperative HEENT: Atraumatic, PERRLA, EOMI, Mouth Mucous membr. moist/Etta, Nose Mucous membr. moist/Etta, Decreased Hearing Acuity Neck: Normal Range of Motion Carotids: WNL Thyroid: WNL Lungs: Clear to auscultation, Normal air movement, Speaks full Sentences, Chest Wall Tenderness (costomanubrial boarder). No: Wheezes, Rales, Rhonchi Cardiovascular: Regular rate, Normal S1, Normal S2, No murmurs Abdomen: Normal bowel sounds, Soft, No tenderness, No hepatospenomegaly, No masses Integumentary: Normal, [place], Warm, Dry Extremities: No clubbing, No cyanosis, No edema, Normal pulses, No tenderness/swelling Neurological: Normal gait, Normal speech, Strength Equal Bilat, Normal tone, Sensation intact, Cranial nerves 3-12 NL, Reflexes 2+ Psych/Mental Status: Mental status NL, Mood NL, Appropriate Affect, Intact Judgment - Laboratory Results Laboratory Results: Laboratory Results 05/20/19 05/20/19 11:34 11:34 WBC 9.90 RBC 4.45 Hgb 14.7 Hct 42.9 MCV 96.0 MCH 33.0 MCHC 34.3 RDW 11.3 Plt Count 223 Neut % (Auto) 57.1 Lymph % (Auto) 33.7 [place] % (Auto) 6.7 Eos % (Auto) 2.0 Baso % (Auto) 0.5 Neut # (Auto) 5.6 Lymph # (Auto) 3.3 [place] # (Auto) 0.7 Eos # (Auto) 0.2 Baso # (Auto) 0.1 Sodium 141 Potassium 3.3 L Chloride 99 Carbon Dioxide 26 Anion Gap 19.3 BUN 6 L Creatinine 0.31 L Estimated Creat Clear 280 Est GFR ( Amer) > 60 Est GFR (Non-Af Amer) > 60 Glucose 170 H Calcium 10.7 H Total Bilirubin 2.0 H AST 47 H ALT 20 Alkaline Phosphatase 74 Creatine Kinase 28 L CK-MB (CK-2) 0.9 Troponin I 0.016 NT-Pro-B Natriuret Pep 479.7 H Total Protein 8.0 Albumin 4.8 Assessment/Plan - Assessment/Plan (1) Chest pain Status: Acute Current Visit: Yes Qualifiers: Chest pain type: unspecified Qualified Code(s): R07.9 - Chest pain, unspecified Assessment: Patient initial EKG and troponin did not show any changes consistent with an acute ischemic event. Patient will have serial EKG and troponin done. Will monitor the patient for any further chest pain. (2) Hypertension Status: Chronic Current Visit: No Qualifiers: Hypertension type: essential hypertension Qualified Code(s): I10 - Essential (primary) hypertension Assessment: Patient will have her blood pressure monitored. Will continue with home medication. (3) Factor 5 Leiden mutation, heterozygous Status: Chronic Current Visit: Yes VTE Assessment - RISK FACTOR SCORE VTE RISK FACTOR SCORES: AGE OVER 60 YEARS, ANTICIPATED BED CONFINEMENT OR IMMOBILIZATION > 24 HOURS - RISK VTE MODERATE RISK: SCORE OF 2 (RISK PROXIMAL DVT 2-4%) PROPHYAXIS NEEDED
[2019-05-21 06:41] LABS: BASOPHILS % 0.3 % (0.0-1.5); NEUTROPHILS # 4.8 # k/uL (1.4-7.7); eGFR (Non-African) > 60
[2019-05-21] MEDS ORDERED: metFORMIN HCl 500 MG TABLET PO SCH (07:30)
--- NOTE | 2019-05-21 08:16 | Discharge Summary ---
Discharge Summary - Discharge [facility] Admission Date: 05/20/19 (obs) Discharge Date: 05/21/19 (home) Discharge To: Home History of Present Illness: 78yo white female who awoke this AM complaining of chest pain. patient denies that she had any chest pain prior to this time. Patient describes the chest pain is been substernal in the lower sternal area. There is no radiation. Patient stated the pain with better with deep breathing patient patient did not notice any modifying factor that made the pain worse. patient denies any diaphoresis her shortness of breath associated with the pain. Pain did last for several hours before dissipating.Patient does have a history of hyperlipidemia hypertension. Patient subsequently came to the emergency room for evaluation. Shortly after admission patient stated the pain did resolved spontaneously. Toya ent had taken several aspens prior to admission to the ED. Patient was subsequently admitted to the hospital for further evaluation and treatment and relapse possible myocardial infarction. Condition at Discharge: Stable Home Medications: Ambulatory Orders Medication Instructions Recorded Meclizine HCl [Wal-Dram 2] 25 mg PO Q6H PRN #20 tablet 03/19/19 Metformin HCl [Metformin ER 500 mg PO DAILY 03/19/19 Osmotic] Atenolol 05/20/19 Consultations this Visit: None Procedures this Visit: None Allergies/Adverse Reactions: Allergies Allergy/AdvReac Type Severity Reaction Status Date / Time erythromycin base Allergy Unknown unknown Verified 05/20/19 11:40 [From E-Mycin] Penicillins Allergy Unknown unknown Verified 05/20/19 11:40 Sulfa (Sulfonamide Allergy Unknown unknown Verified 05/20/19 11:40 Antibiotics) Discharge Summary: Patient was admitted to hospital to rule out possible ME. Patient did not have any further chest pain after admission. Serial troponins were within normal limits. Serial EKGs continued to show LBBB but no acute ischemic changes noted. Patient was feeling better and was discharged in stable condition. - Final Diagnosis (1) Chest pain Problems: stable (2) Hypertension Problems: patient will be continued on home medications (3) Factor 5 Leiden mutation, heterozygous Problems: Stable (4) LBBB (left bundle branch block) Problems: Stable
[2019-05-21] MEDS ORDERED: ATORVASTATIN CALCIUM 20 MG TABLET PO SCH (09:00)
[2019-05-21] MEDS ORDERED: ENOXAPARIN SODIUM 30 MG/0.3 ML DISP.SYRIN SQ SCH (09:00)
[2019-05-21 09:13] VITALS: BP 142/74
[2019-05-21] MEDS: ATENOLOL 25 MG TABLET PO SCH (09:14)
[2019-05-21] MEDS ORDERED: amLODIPine BESYLATE 5 MG TABLET PO ONE (09:22)
== END 2019-05-21 09:45 | disposition home or self-care (01) ==
LOC: ED 11:26 → SOUTH 13:44
PROVIDERS: ADMIT Family Medicine; ATTEND Family Medicine
DX: I10 Essential (primary) hypertension (principal); D68.51 Activated protein C resistance
CPT/HCPCS: 36415; 71046; 80053; 82550; 82553; 83880; 84484; 85025; 93005; 96360; 99218; 99283; 99284; G0378; J1650; J7060; S1016

== ENCOUNTER 2019-07-01 10:36 | Inpatient (IN) | payer MEDICARE, OTHER ==
[2019-07-01] MEDS ORDERED: 0.9 % SODIUM CHLORIDE 1,000 ML IV ONE ×2 (11:12→11:24)
[2019-07-01] MEDS ORDERED: ONDANSETRON HCL/PF 4 MG/ 2ML VIAL IVP ONE (11:24)
[2019-07-01 11:27] LABS: BASOPHILS % 0.5 % (0.0-1.5); NEUTROPHILS # 5.2 # k/uL (1.4-7.7); eGFR (Non-African) > 60
[2019-07-01] MEDS ORDERED: POTASS CHLOR 10 mEq/100mL IVPB 10 MEQ/100 ML ML IV ONE (11:31)
--- NOTE | 2019-07-01 12:02 | ED Physician Documentation ---
Dizziness - HISTORIAN Historian: patient - HPI Stated Complaint: dizziness Chief Complaint: Dizziness Timing: cannot confirm onset Duration: constant Associated Symptoms: other (fall) Decreased Ability to Stand/ Walk: off balance Usually: walks w/o assistance Further Comments: yes (Dana is an 78 year old female patient who presents with complaints of dizziness which started this morning. She lost her balance and fell into the wall, no LOC. 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.) - ROS CONST: none EYES/ENT: none GI/: none MS/SKIN/LYMPH: none NEURO/PSYCH: none CVS/RESP: none - PAST HX Past History: hyperlipidemia, hypertension, other (Vertigo, Factor V Lieden) Allergies/Adverse Reactions: Allergies Allergy/AdvReac Type Severity Reaction Status Date / Time erythromycin base Allergy Unknown unknown Verified 07/01/19 11:10 [From E-Mycin] Penicillins Allergy Unknown unknown Verified 07/01/19 11:10 Sulfa (Sulfonamide Allergy Unknown unknown Verified 07/01/19 11:10 Antibiotics) Home Medications: Ambulatory Orders Medication Instructions Recorded Meclizine HCl [Wal-Dram 2] 25 mg PO Q6H PRN #20 tablet 03/19/19 Metformin HCl [Metformin ER 500 mg PO DAILY 03/19/19 Osmotic] Atenolol 05/20/19 - SOCIAL HX Smoking History: non-smoker - FAMILY HX Family History: denies: none - VITAL SIGNS Vital Signs: Vital Signs Temp Pulse Resp BP Pulse Ox 98.8 F 89 20 170/73 94 07/01/19 10:37 07/01/19 11:07 07/01/19 10:37 07/01/19 11:07 07/01/19 10:37 - REVIEWED ASSESSMENTS Nursing Assessment Reviewed: Yes Vitals Reviewed: Yes Progress - Progress Progress: Patient with complaints of nausea; will not be able to take POs. Frequent PVCs on monitor. Will need inpatient admission for correction of K and Mag; as well as monitoring rhythm. 1315 Long discussion with son - concerned about patient's poor po intake and generalized weakness. Patient reports she is eating about 1 pack of muffins daily. Family takes food and patient does not eat. Discussed PT evaluation with family and starting daily vitamin at discharge. - EKG/XRAY/CT EKG: rhythm (SR with frequent PVCs, rate 88) ED Results Lab/Radiology - Lab Results Lab Results: Lab Results 07/01/19 07/01/19 07/01/19 11:10 11:10 11:10 WBC 8.30 K/ul K/ul (4.00-12.00) RBC 4.56 M/ul M/ul (3.90-5.20) Hgb 14.9 g/dL g/dL (11.5-16.0) Hct 45.0 % % (34.5-46.5) MCV 99.0 fl fl (80.0-100.0) MCH 33.0 pg pg (28.0-34.0) MCHC 33.1 g/dL g/dL (30.0-36.0) RDW 12.1 % % (11.3-14.3) Plt Count 213 K/mm3 K/mm3 (130-400) Neut % (Auto) 62.9 % % (39.0-79.0) Lymph % (Auto) 29.6 % % (16.0-50.0) [place] % (Auto) 4.3 % % (0.0-11.0) Eos % (Auto) 2.7 % % (0.0-6.8) Baso % (Auto) 0.5 % % (0.0-1.5) Neut # (Auto) 5.2 # k/uL # k/uL (1.4-7.7) Lymph # (Auto) 2.5 # k/uL # k/uL (0.6-4.0) [place] # (Auto) 0.4 # k/uL # k/uL (0.0-0.9) Eos # (Auto) 0.2 # k/uL # k/uL (0.0-0.6) Baso # (Auto) 0.0 # k/uL # k/uL (0.0-0.5) Sodium 142 mmol/L mmol/L (137-145) Potassium 2.9 mmol/L L mmol/L (3.5-5.1) Chloride 99 mmol/L mmol/L (98-107) Carbon Dioxide 28 mmol/L mmol/L (22-30) Anion Gap 17.9 BUN 7 mg/dL mg/dL (7-17) Creatinine 0.45 mg/dL L mg/dL (0.52-1.04) Estimated Creat Clear 146 Est GFR ( Amer) > 60 (60 - ) Est GFR (Non-Af Amer) > 60 (60 - ) Glucose 241 mg/dL H mg/dL (74-106) Calcium 9.8 mg/dL mg/dL (8.4-10.2) Magnesium 1.7 mIU/l mIU/l (1.6-2.3) Total Bilirubin 2.4 mg/dL H mg/dL (0.2-1.3) AST 40 U/L U/L (15-46) ALT 23 U/L U/L (4-35) Alkaline Phosphatase 77 U/L U/L (38-126) Total Protein 7.4 g/dL g/dL (6.3-8.2) Albumin 4.7 g/dL g/dL (3.5-5.0) - Orders Orders: ED Orders Category Date Time Status CBC/PLATELET/DIFF Stat Lab 07/01/19 11:10 Completed CMP Stat Lab 07/01/19 11:10 Completed MAGNESIUM Stat Lab 07/01/19 11:10 Completed 0.9 % Sodium Chloride [Normal Saline] 1,000 ml Med 07/01/19 11:12 Discontinued IV .STK-MED 0.9 % Sodium Chloride [Normal Saline] 1,000 ml Med 07/01/19 11:24 Discontinued IV NOW Ondansetron HCl/Pf [Zofran] Med 07/01/19 11:24 Discontinued 4 mg IVP NOW ONE POTASS CHLOR 10 mEq/100mL IVPB [KCL 10 mEq/100 mL IVPB] Med 07/01/19 11:31 Discontinued 20 meq IV NOW ONE Dizziness Physical Exam - Physical Exam General Appearance: moderate distress EENT: eye inspection normal, [place] Neck: normal inspection Respiratory: no respiratory distress, breath sounds nml, chest non-tender CVS: heart sounds normal, equal pulses, no murmur, no gallop, PMI nml, no JVD, no friction rub, irregularly irregular rhy, other (SR with very frequent unifocal PVCs) Abdomen: soft, no organomegaly, normal bowel sounds, no abdominal bruit, no distension Skin: warm/dry, pallor Neuro: nml orientation, nml speech, nml cognition, mood/affect nml Extremities: non-tender, normal range of motion, no evidence of injury, 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
[2019-07-01] MEDS ORDERED: MAGNESIUM SULFATE 2 GM in 0.9 % SODIUM CHLORIDE 100 ML IV ONE (12:13)
[2019-07-01 14:02] VITALS: BMI 25.6
[2019-07-01] MEDS: POTASSIUM CHLORIDE 20 MEQ TABLET.ER PO SCH (16:37)
--- NOTE | 2019-07-01 17:54 | History and Physical Report ---
History of Present Illnes - History of Present Illness Reason for Visit: hypokalemia, ectopia, dizziness History of Present Illness: 78-year-old white female who had a long-standing history of dizziness. Patient stated recent her dizziness seem to be getting worse. Patient eating habits are not good. Sometimes patient stated she will go all day without eating anything. Patient denies any nausea vomiting diarrhea constipation. Patient is not have any abdominal pain. 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 Family members have been trying to bring in food for her.but stated it does not seem to be the reason why she is having poor oral intake. Patient is not sure if she has been losing weight. Patient believes that she is drinking fluids adequately. Patient has been having more skip beats that she is been able to feel. Over the last 2448 hrs. patient would have a more increase dizziness symptoms did patient subsequently came to the emergency room. In the emergency room patient was found to be hypokalemic with her potassium of 2.9. Because of the sporadic oral intake, her increase actropy it was elected to admit the patient to the hospital to try to get her potassium backup in the see if there's anything we can do to increase her oral intake. - Past Medical History Cardiac: HTN, Hyperlipidemia. 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) Gastrointestinal: GERD, Other (esophageal stricture) Heme/Onc: Other (Factor V Leiden deficency) Musculoskeletal: Other (hip pain chronic) ENT: Allergic rhinitis - Past Surgical History Past Surgical History: Cataract Removal, Hysterectomy (total), Total Hip Replacement (bilateral), Other (esophageal dilitation) - Past Family History Mother Family History: DM, (82yo) Father Family History: CAD, DM, (70s) Brother 1 Family History: CAD Sister 1 Family History: CAD, DM, Other (alzeheimers) Sister 2 Family History: Cancer - Past Social History Smoke: No Alcohol: None Drugs: None Lives: Alone Domestic Violence: Negative - Health Maintenance Health Maintenance: Influenza Vaccine, Pneumococcal Vaccine. denies: Tetanus, Mammogram, Colonoscopy, DEXA Influenza Vaccine: Current for this Influenza Season Pneumonia Vaccine: Yes Resuscitation Status: Resusciation Status Resuscitation Status Full Code Review of Systems - Review of Systems Constitutional: Weakness. negative: Fever, Chills, Sweats Eyes: negative: pain ENT: negative: Ear Pain, Ear Discharge, Mouth Pain Respiratory: negative: Cough, Dry, Shortness of Breath, Hemoptysis, SOB with Excertion, Pleuritic Pain, Wheezing Cardiovascular: Light Headedness. negative: Chest Pain, Palpitations, Orthopnea, Edema Gastrointestinal: negative: Nausea, Vomiting, Abdominal Pain, Diarrhea, Constipation, Melena, Hematochezia Genitourinary: negative: Dysuria, Frequency, Incontinence, Hematuria Musculoskeletal: Back Pain, Leg Pain Skin: negative: Rash Neurological: Weakness - Medications/Allergies Allergies/Adverse Reactions: Allergies Allergy/AdvReac Type Severity Reaction Status Date / Time erythromycin base Allergy Unknown unknown Verified 07/01/19 11:10 [From E-Mycin] Penicillins Allergy Unknown unknown Verified 07/01/19 11:10 Sulfa (Sulfonamide Allergy Unknown unknown Verified 07/01/19 11:10 Antibiotics) Current Inpatient Medications: Current Inpatient Medications Amlodipine Besylate (Norvasc) 10 mg PO DAILY HAYDE Stop: 08/01/19 08:59 Atorvastatin Calcium (Lipitor) 20 mg PO DAILY HAYDE Stop: 08/01/19 08:59 Magnesium Oxide (Mag-Oxide) 400 mg PO [id number] HAYDE Stop: 08/01/19 09:59 Potassium Chloride (Klor-Con M20) 20 meq PO DAILY HAYDE Stop: 07/31/19 15:59 Last Admin: 07/01/19 16:37 Dose: 20 meq Exam - Exam Vital Signs: Vital Signs (72 hours) 07/01/19 07/01/19 07/01/19 10:37 11:07 13:17 Temperature 98.8 F Pulse Rate 89 Pulse Rate [ Left] Pulse Rate [ 89 75 Pulse ox] Respiratory 20 18 Rate Blood Pressure 170/73 Blood Pressure 170/73 156/67 [Left Arm] Blood Pressure [Right Arm] O2 Sat by Pulse 94 94 Oximetry 07/01/19 07/01/19 07/01/19 13:21 13:56 13:57 Temperature 97.8 F 97.8 F 97.8 F Pulse Rate 125 H Pulse Rate [ 99 H 99 H 99 H Left] Pulse Rate [ 75 Pulse ox] Respiratory 20 20 20 Rate Blood Pressure Blood Pressure 163/105 163/105 163/105 [Left Arm] Blood Pressure 167/72 [Right Arm] O2 Sat by Pulse 96 96 96 Oximetry 01/06/20 01/06/20 01/06/20 14:00 16:00 17:20 Temperature Pulse Rate 81 79 86 Pulse Rate [ 86 Left] Pulse Rate [ Pulse ox] Respiratory 20 Rate Blood Pressure Blood Pressure [Left Arm] Blood Pressure [Right Arm] O2 Sat by Pulse 96 Oximetry 07/01/19 17:43 Temperature 98.5 F Pulse Rate Pulse Rate [ 85 Left] Pulse Rate [ Pulse ox] Respiratory 20 Rate Blood Pressure Blood Pressure 136/82 [Left Arm] Blood Pressure [Right Arm] O2 Sat by Pulse 93 Oximetry General: Alert, Oriented to Person, Oriented to Place, Oriented to Time, Jorge ative, Mild distress HEENT: Atraumatic, PERRLA, EOMI, Mouth Mucous membr. moist/[place], Nose Mucous membr. moist/[place], Decreased Hearing Acuity Neck: Normal Range of Motion Carotids: WNL Thyroid: WNL Lungs: Clear to auscultation, Normal air movement, Speaks full Sentences Cardiovascular: Regular rate, Normal S1, Normal S2, No murmurs, Other (no orthostatic changes.). No: Gallops, Rubs Abdomen: Normal bowel sounds, Soft, No tenderness, No hepatospenomegaly, No masses Integumentary: Normal, [place], Warm, Dry Extremities: No clubbing, No cyanosis, No edema, Normal pulses, No tenderness/swelling Neurological: Normal gait, Normal speech, Strength Equal Bilat, Normal tone, Sensation intact, Cranial nerves 3-12 NL, Reflexes 2+ Psych/Mental Status: Mental status NL, Mood NL, Appropriate Affect, Intact Judgment - Laboratory Results Laboratory Results: Laboratory Results 07/01/19 07/01/19 07/01/19 11:10 11:10 11:10 WBC 8.30 RBC 4.56 Hgb 14.9 Hct 45.0 MCV 99.0 MCH 33.0 MCHC 33.1 RDW 12.1 Plt Count 213 Neut % (Auto) 62.9 Lymph % (Auto) 29.6 [place] % (Auto) 4.3 Eos % (Auto) 2.7 Baso % (Auto) 0.5 Neut # (Auto) 5.2 Lymph # (Auto) 2.5 [place] # (Auto) 0.4 Eos # (Auto) 0.2 Baso # (Auto) 0.0 Sodium 142 Potassium 2.9 L Chloride 99 Carbon Dioxide 28 Anion Gap 17.9 BUN 7 Creatinine 0.45 L Estimated Creat Clear 146 Est GFR ( Amer) > 60 Est GFR (Non-Af Amer) > 60 Glucose 241 H Calcium 9.8 Magnesium 1.7 Total Bilirubin 2.4 H AST 40 ALT 23 Alkaline Phosphatase 77 Total Protein 7.4 Albumin 4.7 Assessment/Plan - Assessment/Plan (1) Hypokalemia Status: Acute Current Visit: Yes Assessment: Patient is been given IV potassium will start oral potassium replacement. (2) Hypomagnesemia Status: Acute Current Visit: Yes Assessment: patient started on supplemental replacement (3) Weakness Status: Acute Current Visit: Yes Assessment: Believed to be partially due to her hypokalemia and her poor oral intake. Will replace patient was potassium. (4) Episode of dizziness Status: Chronic Current Visit: No (5) Essential hypertension Status: Chronic Current Visit: Yes Assessment: Continue home medications (6) Achalasia, esophageal Status: Chronic Current Visit: Yes Assessment: Monitor patient swallowing VTE Assessment - RISK FACTOR SCORE VTE RISK FACTOR SCORES: AGE OVER 60 YEARS, ANTICIPATED BED CONFINEMENT OR IMMOBILIZATION > 24 HOURS - RISK VTE MODERATE RISK: SCORE OF 2 (RISK PROXIMAL DVT 2-4%) PROPHYAXIS NEEDED
[2019-07-02 07:25] LABS: eGFR (Non-African) > 60
[2019-07-02] MEDS: POTASSIUM CHLORIDE 20 MEQ TABLET.ER PO SCH (08:31)
[2019-07-02 08:47] VITALS: BP 140/71
[2019-07-02] MEDS ORDERED: amLODIPine BESYLATE 5 MG TABLET PO SCH (09:00)
[2019-07-02] MEDS ORDERED: METFORMIN HCL 500 MG PO SCH (09:00)
[2019-07-02] MEDS ORDERED: ATORVASTATIN CALCIUM 20 MG TABLET PO SCH (09:00)
[2019-07-02] MEDS ORDERED: MAGNESIUM OXIDE 400 MG TABLET PO SCH (10:00)
--- NOTE | 2019-07-02 12:00 | Discharge Summary ---
Discharge Summary - Discharge [facility] Admission Date: 07/01/19 Discharge Date: 07/02/19 Discharge To: Home History of Present Illness: 78-year-old white female who had a long-standing history of dizziness. Patient stated recent her dizziness seem to be getting worse. Patient eating habits are not good. Sometimes patient stated she will go all day without eating anything. Patient denies any nausea vomiting diarrhea constipation. Patient is not have any abdominal pain. 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 Family members have been trying to bring in food for her.but stated it does not seem to be the reason why she is having poor oral intake. Patient is not sure if she has been losing weight. Patient believes that she is drinking fluids adequately. Patient has been having more skip beats that she is been able to feel. Over the last 2448 hrs. patient would have a more increase dizziness symptoms did patient subsequently came to the emergency room. In the emergency room patient was found to be hypokalemic with her potassium of 2.9. Because of the sporadic oral intake, her increase actropy it was elected to admit the patient to the hospital to try to get her potassium backup in the see if there's anything we can do to increase her oral intake. Additional Instructions: Will start Meals on Wheels Condition at Discharge: Stable Home Medications: Ambulatory Orders Medication Instructions Recorded Meclizine HCl [Wal-Dram 2] 25 mg PO Q6H PRN #20 tablet 03/19/19 Potassium Chloride [K-Tab ER] 8 meq PO DAILY #30 tablet.er 07/02/19 Consultations this Visit: None Procedures this Visit: None Allergies/Adverse Reactions: Allergies Allergy/AdvReac Type Severity Reaction Status Date / Time erythromycin base Allergy Unknown unknown Verified 07/01/19 11:10 [From E-Mycin] Penicillins Allergy Unknown unknown Verified 07/01/19 11:10 Sulfa (Sulfonamide Allergy Unknown unknown Verified 07/01/19 11:10 Antibiotics) Patient Problems: Current Active Problems Problem Status Onset Dizziness Acute Frequent PVCs Acute Hypokalemia Acute Hypomagnesemia Acute Weakness Acute Achalasia, esophageal Chronic Essential hypertension Chronic Discharge Summary: Patient was started on IV potassium replacement and then transitioned over to oral potassium. Patient tolerated oral potassium well. Patient was given supplemental magnesium. Patient did eat fairly well during her hospital stay. Patient states that her weakness did improve. Patient did not have any dizziness while hospitalized. Arrangements were made for the patient to be placed on Meals on Wheels to help with her oral intake. It was felt that possibly some of the dizziness and weakness problems she was having was because she was not eating some time for greater than 36 hours. Patient will be continued on supplemental potassium. It was felt that the time to discharge patient was stable enough to be discharged home. - Final Diagnosis (1) Hypokalemia Problems: improved (2) Hypomagnesemia Problems: improved (3) Weakness Problems: improved (4) Episode of dizziness Problems: stable (5) Essential hypertension Problems: stable (6) Achalasia, esophageal Problems: stable
== END 2019-07-02 12:55 | disposition home or self-care (01) | DRG 641 ==
LOC: ED 10:36 → SOUTH 13:13
PROVIDERS: ADMIT Family Medicine; ATTEND Family Medicine
DX: E87.6 Hypokalemia (principal); D68.51 Activated protein C resistance; I10 Essential (primary) hypertension; E78.5 Hyperlipidemia, unspecified; I49.3 Ventricular premature depolarization; K22.0 Achalasia of cardia; E83.42 Hypomagnesemia; R42 Dizziness and giddiness; K21.9 Gastro-esophageal reflux disease without esophagitis; Z88.1 Allergy status to other antibiotic agents; Z88.0 Allergy status to penicillin; Z88.2 Allergy status to sulfonamides; Z79.899 Other long term (current) drug therapy; Z98.49 Cataract extraction status, unspecified eye; Z90.710 Acquired absence of both cervix and uterus; Z96.643 Presence of artificial hip joint, bilateral; Z91.81 History of falling
CPT/HCPCS: 80048; 80053; 83735; 85025; 93005; 99221; 99238; J2405; J3475; A9270; J7030; S1016

== ENCOUNTER 2019-07-08 11:55 | Outpatient (CLI) | payer MEDICARE, OTHER | END 2019-07-08 12:00 | LOC: LABRHC 11:55 | PROVIDERS: ATTEND Family Medicine | DX: E87.6 Hypokalemia (principal) | CPT/HCPCS: 80048 ==